=== PATIENT | male | born 1975 | race Two or more races ===

== ENCOUNTER 2022-04-12 13:07 | Outpatient (CLI) | payer OTHER | END 2022-04-12 13:14 | disposition home or self-care (01) | LOC: RAD 13:07 | DX: M99.01 Segmental and somatic dysfunction of cervical region (principal); M99.02 Segmental and somatic dysfunction of thoracic region; M99.03 Segmental and somatic dysfunction of lumbar region; M54.16 Radiculopathy, lumbar region; M99.04 Segmental and somatic dysfunction of sacral region; M62.830 Muscle spasm of back ==